=== PATIENT | male | born 1965 | race Native Hawaiian/Other Pacific Islander ===

== ENCOUNTER 2018-11-16 03:59 | Emergency (ER) | payer OTHER ==
[~2018-11-16] VITALS: Ht 177.8 cm; Wt 108.9 kg
[2018-11-16 04:19] LABS: HEMATOCRIT 47.2 % (42.0-52.0); HEMOGLOBIN 16.4 gm/dL (14.0-18.0); MCH 30.5 pg (26.0-34.0); MCHC 34.7 g/dL (28.0-37.0); MCV 87.8 fL (80.0-100.0); PLATELET COUNT 245 thou/uL (150-400); RBC 5.38 mil/uL (4.50-6.00); RDW 13.7 % (10.5-14.5); WBC 8.5 thou/uL (4.0-11.0)
[2018-11-16 04:20] LABS: URINE BILIRUBIN NEGATIVE (Negative); URINE BLOOD 1+ (Negative); URINE CLARITY CLEAR; URINE COLOR YELLOW; URINE GLUCOSE-RANDOM* NEGATIVE (Negative); URINE KETONES NEGATIVE (Negative); URINE LEUKOCYTES-REFLEX NEGATIVE (Negative); URINE NITRITE-REFLEX NEGATIVE (Negative); URINE PROTEIN (DIPSTICK) 1+ (Negative); URINE SPECIFIC GRAVITY >= 1.030 (1.005-1.035); URINE UROBILINOGEN 0.2 E.U./dl (0.2-1.0)
[2018-11-16 04:28] LABS: AMP/METHAMP Negative (Negative); BARBITURATES Negative (Negative); BENZODIAZEPINES Negative (Negative); COCAINE Negative (Negative); METHADONE Negative (Negative); OPIATES Negative (Negative); PCP Negative (Negative)
[2018-11-16 04:30] LABS: ANION GAP 12 mmol/L (7-16); BUN 15 mg/dL (7-18); CALCIUM 8.4 mg/dL (8.5-10.1); CHLORIDE 104 mmol/L (98-107); CO2 25 mmol/L (21-32); GLUCOSE 165 mg/dL (74-106); POTASSIUM 3.1 mmol/L (3.5-5.1); SODIUM 141 mmol/L (136-145)
[2018-11-16 04:35] LABS: SQUAMOUS 0-3 Few /LPF (0-3); URINE WBC-REFLEX 0-5 Rare /HPF (0-5)
[2018-11-16 04:36] LABS: BACTERIA-REFLEX 1-9 Few /HPF (None Seen); CRYSTALS None Seen /LPF (None Seen); HYALINE CASTS 0-3 Few /LPF (None Seen); MUCUS 4-6 Moderate strn/LPF (None Seen)
[2018-11-16 04:39] LABS: ALBUMIN 3.8 g/dL (3.4-5.0); LIPASE 424 U/L (73-393); MAGNESIUM 2.1 mg/dL (1.8-2.4); SGOT 37 U/L (15-37); SGPT 54 U/L (30-65); TOTAL BILIRUBIN 0.4 mg/dL (<0.1-1.0); TOTAL PROTEIN 7.5 g/dL (6.4-8.2); TROPONIN-I <0.06 ng/mL (<0.06)
[2018-11-16] MEDS ORDERED: VALIUM2 MG PO (04:54)
[2018-11-16 04:59] LABS: ABSOLUTE NEUTROPHILS 4.6 thou/uL (1.4-8.2)
[2018-11-16 05:00] LABS: ANISOCYTOSIS 1+; LARGE PLATELETS FEW; PLATELET ESTIMATE NORMAL; POLYCHROMASIA 1+
[2018-11-16 06:00] VITALS: BP 147/87
--- NOTE | 2018-11-16 09:17 | EKG ---
[place] [address] [facility] [place] [address] ELECTROCARDIOGRAM REPORT Name: LONNY GILBERT Room #: DEP Ila#: [id number] ������������������ Admission: 11/16/18 ������������������ Attend Phys: Discharge: 11/16/18 ������������������ Date of : 65 Report #: [id number] ����������������������������������������������������������������� [id number] THIS REPORT FOR: //name// [facility] ED Test Date: 2018-11-16 Test Time: 04:03:35 Pat Name: LONNY TA Department: Room: Gender: M [employer] Coordinator: WILLIAM : 1965 Requested By: Juan J Ceja Order Number: [id number] MD: Jaime Yun Measurements Intervals Pedro Rate: 81 P: 45 MA: 164 QRS: 35 QRSD: 113 T: 28 QT: 419 QTc: 487 Interpretive Statements Sinus rhythm Borderline prolonged QT interval No previous ECG available for comparison Electronically Signed On 11-16-2018 9:17:12 CDT by Jaime Yun [email or web address] ��������������������������������������������� <ELECTRONICALLY SIGNED> ���������������������������������������� By: Jaime Yun MD, [facility] ��������������������������������������������� 11/16/18 0917 [id number] Jaime Yun MD, FACC /EPI
== END 2018-11-16 06:13 | disposition home or self-care (01) ==
LOC: EDBD 03:59 → ER 03:59
PROVIDERS: Emergency Medicine
DX: R42 Dizziness and giddiness (principal); R11.2 Nausea with vomiting, unspecified; H93.19 Tinnitus, unspecified ear; R31.9 Hematuria, unspecified; I10 Essential (primary) hypertension; E87.6 Hypokalemia

== ENCOUNTER → 2020-07-14 | Outpatient (CLI) | payer OTHER ==
[~2020-07-14] MED LIST: VALIUM2 MG PO
== END ==
LOC: SJCVCIMAG 08:08
PROVIDERS: ATTEND Internal Medicine
DX: I07.1 Rheumatic tricuspid insufficiency (principal); I11.9 Hypertensive heart disease without heart failure

== ENCOUNTER → 2020-08-14 | Outpatient (CLI) | payer OTHER | LOC: LAB 10:47 | PROVIDERS: ATTEND Family Medicine | DX: U07.1 COVID-19 (principal) ==